=== PATIENT | female | born 1995 | race Two or more races ===

== ENCOUNTER 2019-08-15 16:24 | Emergency (ER) | payer OTHER ==
[~2019-08-15] VITALS: Ht 160 cm; Wt 64.0 kg
[2019-08-15] MEDS ORDERED: FOLIC ACID20 MG (16:47)
[2019-08-15] MEDS ORDERED: PRENATABS FA T1 EACH (16:47)
== END 2019-08-15 22:35 | disposition home or self-care (01) ==
LOC: ER 16:24
DX: O26.891 Other specified pregnancy related conditions, first trimester (principal); R10.2 Pelvic and perineal pain; Z34.01 Encounter for supervision of normal first pregnancy, first trimester

== ENCOUNTER 2019-10-17 20:19 | Emergency (ER) | payer OTHER ==
[~2019-10-17] VITALS: Ht 162.6 cm; Wt 82.6 kg
[~2019-10-17 20:19] MED LIST: FOLIC ACID20 MG; PRENATABS FA T1 EACH
== END 2019-10-17 23:30 | disposition home or self-care (01) ==
LOC: ER 20:19
DX: O20.8 Other hemorrhage in early pregnancy (principal); Z34.02 Encounter for supervision of normal first pregnancy, second trimester

== ENCOUNTER 2019-11-11 09:31 | Emergency (ER) | payer OTHER ==
[~2019-11-11] VITALS: Ht 160 cm; Wt 82.6 kg
[2019-11-11] MEDS ORDERED: KEFLEX500 MG PO (13:19)
== END 2019-11-11 13:48 | disposition home or self-care (01) ==
LOC: ER 09:31
DX: O26.892 Other specified pregnancy related conditions, second trimester (principal); O26.852 Spotting complicating pregnancy, second trimester; O36.80X1 Pregnancy with inconclusive fetal viability, fetus 1; R30.0 Dysuria; R10.2 Pelvic and perineal pain; Z34.02 Encounter for supervision of normal first pregnancy, second trimester

== ENCOUNTER 2019-11-22 19:52 | Outpatient (CLI) | payer OTHER ==
[~2019-11-22 19:52] MED LIST changes: +KEFLEX500 MG PO
== END 2019-11-23 08:40 | disposition home or self-care (01) ==
LOC: OBS/DEL 19:52
DX: O46.8X2 Other antepartum hemorrhage, second trimester (principal); O35.8XX1 Maternal care for other (suspected) fetal abnormality and damage, fetus 1; Z36.89 Encounter for other specified antenatal screening

== ENCOUNTER 2019-12-04 18:48 | Outpatient (CLI) | payer OTHER | END 2019-12-05 10:48 | disposition home or self-care (01) | LOC: OBS/DEL 18:48 | DX: O26.892 Other specified pregnancy related conditions, second trimester (principal); R10.2 Pelvic and perineal pain ==

== ENCOUNTER 2020-02-10 17:00 | Outpatient (CLI) | payer OTHER | END 2020-02-10 22:34 | disposition home or self-care (01) | LOC: OBS/DEL 17:00 | DX: O26.893 Other specified pregnancy related conditions, third trimester (principal); Z04.3 Encounter for examination and observation following other accident; O76 Abnormality in fetal heart rate and rhythm complicating labor and delivery; W18.39XA Other fall on same level, initial encounter; Y93.89 Activity, other specified; Y92.89 Other specified places as the place of occurrence of the external cause; Y99.8 Other external cause status ==

== ENCOUNTER 2020-03-25 05:38 | Inpatient (IN) | payer OTHER ==
[~2020-03-25] VITALS: Ht 160 cm; Wt 82.1 kg
[2020-03-28] MEDS ORDERED: COLACE100 MG PO (09:23)
[2020-03-28] MEDS ORDERED: NAPR500T14 PO (09:23)
[2020-03-28] MEDS ORDERED: PRENATABS FA T1 EACH PO (09:23)
== END 2020-03-28 12:11 | disposition home or self-care (01) | DRG 788 ==
LOC: LDR 05:38 → OB/GYN 05:38
PROVIDERS: ADMIT Obstetrics & Gynecology; ATTEND Obstetrics & Gynecology
PROC: 3E033VJ Introduction of Other Hormone into Peripheral Vein, Percutaneous Approach (ICD-10-PCS; 2020-03-25)
PROC: 4A1HXFZ Monitoring of Products of Conception, Cardiac Rhythm, External Approach (ICD-10-PCS; 2020-03-25)
PROC: 10D00Z1 Extraction of Products of Conception, Low, Open Approach (ICD-10-PCS; principal; 2020-03-25 17:00)
DX: O61.0 Failed medical induction of labor (principal); O14.04 Mild to moderate pre-eclampsia, complicating childbirth; Z3A.38 38 weeks gestation of pregnancy; Z37.0 Single live birth

== ENCOUNTER 2021-04-13 12:02 | Emergency (ER) | payer OTHER ==
[~2021-04-13] VITALS: Ht 160 cm; Wt 67.1 kg
[~2021-04-13 12:02] MED LIST changes: +COLACE100 MG PO; +NAPR500T14 PO; +PRENATABS FA T1 EACH PO
== END 2021-04-13 18:44 | disposition home or self-care (01) ==
LOC: ER 12:02
DX: O26.891 Other specified pregnancy related conditions, first trimester (principal); R10.2 Pelvic and perineal pain; Z34.01 Encounter for supervision of normal first pregnancy, first trimester

== ENCOUNTER 2021-05-20 14:16 | Emergency (ER) | payer OTHER ==
[~2021-05-20] VITALS: Ht 160 cm; Wt 68.0 kg
[2021-05-20] MEDS ORDERED: ZOFRAN8 MG PO (18:47)
== END 2021-05-20 19:08 | disposition home or self-care (01) ==
LOC: ER 14:16
DX: R10.2 Pelvic and perineal pain (principal)

== ENCOUNTER 2021-11-22 09:32 | Outpatient (CLI) | payer OTHER ==
[~2021-11-22 09:32] MED LIST changes: +ZOFRAN8 MG PO
== END 2021-11-22 13:26 | disposition home or self-care (01) ==
LOC: OBS/DEL 09:32
PROVIDERS: ATTEND Obstetrics & Gynecology
DX: O47.1 False labor at or after 37 completed weeks of gestation (principal); Z3A.38 38 weeks gestation of pregnancy

== ENCOUNTER 2021-11-23 14:38 | Inpatient (IN) | payer OTHER ==
[~2021-11-23] VITALS: Ht 160 cm; Wt 3.2 kg
== END 2021-11-26 15:42 | disposition home or self-care (01) | DRG 785 ==
LOC: OB/GYN 14:38 → LDR 14:38 → OB/GYN 21:18
PROVIDERS: ADMIT Obstetrics & Gynecology; ATTEND Obstetrics & Gynecology
PROC: 0UB70ZZ Excision of Bilateral Fallopian Tubes, Open Approach (ICD-10-PCS; 2021-11-23)
PROC: 4A1HXCZ Monitoring of Products of Conception, Cardiac Rate, External Approach (ICD-10-PCS; 2021-11-23)
PROC: 10D00Z1 Extraction of Products of Conception, Low, Open Approach (ICD-10-PCS; principal; 2021-11-23 18:00)
DX: O34.211 Maternal care for low transverse scar from previous cesarean delivery (principal); Z30.2 Encounter for sterilization; Z20.822 Contact with and (suspected) exposure to COVID-19; Z3A.38 38 weeks gestation of pregnancy; Z37.0 Single live birth

== ENCOUNTER 2024-12-30 19:00 | Emergency (ER) | payer OTHER ==
[~2024-12-30] VITALS: Ht 160 cm; Wt 72.6 kg
[2024-12-30] MEDS ORDERED: FAMOTIDINE/PF 20 MG in 0.9 % SODIUM CHLORIDE 8 ML IV PUSH STA (21:08)
[2024-12-30] MEDS ORDERED: 0.9 % SODIUM CHLORIDE 1,000 ML IV SCH ×2 (21:15)
[2024-12-30] MEDS ORDERED: ONDANSETRON HCL 2 MG/ML VIAL IV ONE (21:15)
[2024-12-30] MEDS ORDERED: DIPHENOXYLATE HCL/ATROPINE 1 UDTAB TABLET PO ONE (21:15)
[2024-12-30] MEDS ORDERED: ONDANSETRON HCL 2 MG/ML VIAL ONE (21:30)
[2024-12-30] MEDS ORDERED: FAMOTIDINE/PF 20 MG/2 ML VIAL ONE (21:30)
[2024-12-30 21:48] LABS: HEMATOCRIT 40.7 % (36.0-45.00); HEMOGLOBIN 13.9 g/dL (12.0-15.00); MEAN CELL VOLUME 86.5 fL (80.00-100.00); MEAN CORPUSCULAR HEMOGLOBIN 29.5 pg (27.00-32.0); MEAN CORPUSCULAR HGB CONC 34.1 g/dl (32.0-36.0); PLATELET COUNT 297 K/uL (150-450); RED CELL DISTRIBUTION WIDTH 13.7 % (11.5-14.5)
[2024-12-30 22:10] LABS: ALBUMIN 4.1 gm/dL (3.4-5.0); BILIRUBIN TOTAL 0.61 mg/dL (0.3-1.2); CALCIUM 9.1 mg/dL (8.5-10.1); CREATININE SERUM 0.69 mg/dL (0.55-1.02); GFR 101.3; GLOBULINA 4.7 G/DL (2.4-3.5); POTASSIUM 3.95 mEq/L (3.5-5.1); TOTAL PROTEIN 8.8 gm/dL (6.4-8.2)
[2024-12-30] MEDS ORDERED: PEPCID AC20 MG PO (22:45)
== END 2024-12-30 22:55 | disposition home or self-care (01) ==
LOC: ER 19:02
PROVIDERS: General Practice
DX: K52.89 Other specified noninfective gastroenteritis and colitis (principal); Z20.822 Contact with and (suspected) exposure to COVID-19; Z88.8 Allergy status to other drugs, medicaments and biological substances